=== PATIENT | female | born 1925 | race Caucasian/White ===

== ENCOUNTER → 2017-03-03 | Emergency (ER) | payer MEDICARE, OTHER | END | disposition disaster alternative care site (69) | LOC: GAMB 18:26 | DX: R55 Syncope and collapse (principal); S00.83XA Contusion of other part of head, initial encounter; W19.XXXA Unspecified fall, initial encounter ==

== ENCOUNTER → 2017-03-12 | Outpatient (CLI) | payer MEDICARE, OTHER, MEDICAID | END | disposition disaster alternative care site (69) | LOC: GAMB 11:55 | DX: R55 Syncope and collapse (principal); S61.411A Laceration without foreign body of right hand, initial encounter; M25.561 Pain in right knee; M25.511 Pain in right shoulder; X58.XXXD Exposure to other specified factors, subsequent encounter | CPT/HCPCS: A0425; A0429 ==